=== PATIENT | female | born 1945 | race African-American/Black ===

== ENCOUNTER 2018-12-18 11:11 | Emergency (ER) | payer OTHER ==
[~2018-12-18] VITALS: Ht 167.6 cm; Wt 98.0 kg
[2018-12-18] MEDS ORDERED: NITROGLYCERIN OINT 1GM/INCH UDPKT TD ONE (11:45)
[2018-12-18] MEDS ORDERED: ASPIRIN 81MG TABLET PO ONE (11:45)
[2018-12-18] MEDS ORDERED: FUROSEMIDE 40MG/4ML VIAL IV ONE (11:45)
[2018-12-18 12:04] LABS: BASOPHILS % 0.2 % (0.0-2.0); EOSINOPHILS % 1.4 % (0.0-5.0); HEMOGLOBIN. 13.9 g/dL (12.0-16.0); LYMPHOCYTES % 16.8 % (20.0-50.0); MEAN CORPUSCULAR VOLUME 93.8 fL (81.0-99.0); MEAN PLATELET VOLUME 9.9 fl (7.4-10.4); MONOCYTES % 6.4 % (2.0-8.0); NEUTROPHILS % 75.2 % (40.0-76.0); PLATELET 130 x1000/uL (130-400); RED BLOOD CELL COUNT 4.47 mill/uL (4.2-5.4); RED CELL DISTRIBUTION WIDTH 16.1 % (11.6-14.6)
[2018-12-18 12:10] LABS: CHLORIDE 109 mEq/L (98-107)
[2018-12-18 12:17] LABS: INR 3.3; PARTIAL THROMBOPLASTIN TIME 45.7 sec (23.4-31.0); PROTHROMBIN TIME 32.5 sec (9.6-11.0)
[2018-12-18 14:50] VITALS: BP 118/76
== END 2018-12-18 14:52 | disposition left against medical advice (07) ==
LOC: ER 11:11 → CANRESERV 14:25 → ENRESERV 14:25 → ER 14:52 → CANBEDREQ 14:54
DX: R07.89 Other chest pain (principal); R79.89 Other specified abnormal findings of blood chemistry; I48.91 Unspecified atrial fibrillation; I11.9 Hypertensive heart disease without heart failure; Z95.810 Presence of automatic (implantable) cardiac defibrillator; Z79.01 Long term (current) use of anticoagulants
CPT/HCPCS: 36415; 71045; 80053; 83880; 84484; 85025; 85610; 85730; 93005; 96374; 99284; J1940